=== PATIENT | male | born 1995 | race African-American/Black ===

== ENCOUNTER 2017-12-29 20:24 | Emergency (ER) | payer BC, OTHER ==
[2017-12-29 20:44] VITALS: BP 157/91
[2017-12-29] MEDS ORDERED: POLYMYXIN B SULFATE/TMP OPH SOLN (10 ML/ER DISP) OS ONE (23:33)
--- NOTE | 2017-12-29 23:34 | ER Document Report ---
ED Eye Complaint - General Chief Complaint: Eye Problem Stated Complaint: EYE PAIN Time Seen by Provider: 12/29/17 23:27 Mode of Arrival: Ambulatory Information source: Patient Notes: Patient is a 22-year-old male who presents to the ER today for left eye redness , drainage, itching. Patient states he woke up today with it matted shut, admits to yellow drainage today. He admits that it is itchy but denies any pain. He denies any blurred vision. Patient does not wear contacts. He admits to a slight runny nose as well. TRAVEL OUTSIDE OF THE [place] IN LAST 30 DAYS: No - Related Data Allergies/Adverse Reactions: No Known Allergies Allergy (Unverified 10/15/15 18:55) Past Medical History - General Information source: Patient - Social History Smoking Status: Current Some Day Smoker Frequency of alcohol use: Occasional Family History: Reviewed & Not Pertinent Patient has suicidal ideation: No Patient has homicidal ideation: No Renal/ Medical History: Denies: Hx Peritoneal Dialysis - Immunizations Hx Diphtheria, Pertussis, Tetanus Vaccination: Yes - not current of tdap Review of Systems - Review of Systems Constitutional: No symptoms reported EENT: See HPI Cardiovascular: No symptoms reported Respiratory: No symptoms reported Gastrointestinal: No symptoms reported Genitourinary: No symptoms reported Male Genitourinary: No symptoms reported Musculoskeletal: No symptoms reported Skin: No symptoms reported Hematologic/Lymphatic: No symptoms reported Neurological/Psychological: No symptoms reported Physical Exam - Vital signs Vitals: Temp Pulse Resp BP Pulse Ox 98.7 F 62 18 157/91 H 99 12/29/17 20:41 12/29/17 20:41 12/29/17 20:41 12/29/17 20:41 12/29/17 20:41 - Notes Notes: PHYSICAL EXAMINATION: GENERAL: Well-appearing and in no acute distress. HEAD: Atraumatic, normocephalic. EYES: Pupils equal round and reactive to light, extraocular movements intact, sclera anicteric, conjunctiva erythematous with yellow discharge and watering to the left eye ENT: ear canals without erythema or foreign body, TMs pearly evans with good bony landmarks, nares patent, oropharynx clear without exudates. Moist mucous membranes. NECK: Normal range of motion, supple without lymphadenopathy LUNGS: CTAB and equal. No wheezes rales or rhonchi. HEART: Regular rate and rhythm without murmurs EXTREMITIES: Normal range of motion, no pitting edema. No cyanosis. NEUROLOGICAL: Cranial nerves grossly intact. Normal sensory/motor exams. PSYCH: Normal mood, normal affect. SKIN: Warm, Dry, normal turgor, no rashes or lesions noted Course - Re-evaluation Re-evalutation: 12/29/17 23:33 Patient was sent home on Polytrim eyedrops from the emergency department. This is enough for the entire course of treatment. - Vital Signs Vital signs: Temp Pulse Resp BP Pulse Ox 98.7 F 62 18 157/91 H 99 12/29/17 20:41 12/29/17 20:41 12/29/17 20:41 12/29/17 20:41 12/29/17 20:41 Discharge - Discharge Clinical Impression: Conjunctivitis, left eye Qualifiers: Conjunctivitis type: blepharoconjunctivitis Blepharoconjunctivitis type: unspecified Qualified Code(s): H10.502 - Unspecified blepharoconjunctivitis, left eye Condition: Stable Disposition: HOME, SELF-CARE Additional Instructions: Please apply the eyedrops every 3 hours while awake for 7 days. Return immediately for any new or worsening symptoms. Follow up with primary care provider, call tomorrow to make followup appointment. Forms: Return to Work
== END 2017-12-29 23:55 | disposition home or self-care (01) ==
LOC: ER 20:24
DX: H10.502 Unspecified blepharoconjunctivitis, left eye (principal); F17.200 Nicotine dependence, unspecified, uncomplicated
CPT/HCPCS: 99283; J3490

== ENCOUNTER 2019-11-11 22:15 | Emergency (ER) | payer BC, OTHER ==
--- NOTE | 2019-11-11 22:53 | ER Document Report ---
ED General - General Chief Complaint: Other Stated Complaint: NAUSEA,CONGESTION Time Seen by Provider: 11/11/19 22:40 TRAVEL OUTSIDE OF THE [place] IN LAST 30 DAYS: No - HPI Notes: Patient is a 24-year-old male who presents to the emergency department for evaluation. He has had the hiccups for the last 3 days. He states his hiccups stopped at 11 AM, but he has chest wall pain from them. He states it hurts to move, touch the area. He has not had any hiccups in the last 12 hours. He describes a sore and pinching pain in his chest. He denies any fevers or chills. No nausea or vomiting. He is eating and drinking normally. - Related Data Allergies/Adverse Reactions: No Known Allergies Allergy (Unverified 10/15/15 18:55) Home Medications: None Past Medical History - General Information source: Patient - Is here we will see her we gave her a dose here there is - Social History Smoking Status: Current Some Day Smoker Frequency of alcohol use: Social Family History: Reviewed & Not Pertinent Patient has homicidal ideation: No - Medical History Medical History: Negative Renal/ Medical History: Denies: Hx Peritoneal Dialysis Surgical Hx: Negative - Immunizations Hx Diphtheria, Pertussis, Tetanus Vaccination: Yes - not current of tdap Review of Systems - Review of Systems Cardiovascular: See HPI Musculoskeletal: See HPI -: Yes All other systems reviewed and negative Physical Exam - Vital signs Vitals: Temp Pulse Resp BP Pulse Ox 98.0 F 84 18 158/85 H 97 11/11/19 22:19 11/11/19 22:19 11/11/19 22:19 11/11/19 22:19 11/11/19 22:19 - Notes Notes: Vital signs reviewed, please refer to chart. Head is normocephalic, atraumatic. Pupils equal round, reactive to light. Neck is supple without meningismus. Heart is regular rate and rhythm. Lungs are clear to auscultation bilaterally. Chest wall excursion is equal, chest wall is mildly tender. Abdomen is soft, nontender, normoactive bowel sounds throughout. Extremities without cyanosis, clubbing. Posterior calves are nontender. Peripheral pulses are equal. Skin is warm and dry. Patient is awake, alert, neurological exam is nonfocal. Course - Re-evaluation Re-evalutation: 11/11/19 23:08 Patient presents to the emergency department for evaluation of chest pain after intractable hiccups. His hiccups have resolved, he has not had a hiccup in over 12 hours. His chest wall is tender to palpation. I suspect this is musculoskeletal. He had EKG and chest x-ray ordered. EKG fails to show any signs of ischemia or infarction. Chest x-ray interpreted by myself as being negative. We will send patient home with anti-inflammatories and muscle relaxers, close follow-up. He is to return to the ED with worsening. - Vital Signs Vital signs: Temp Pulse Resp BP Pulse Ox 98 F 84 18 158/85 H 97 11/11/19 22:24 11/11/19 22:19 11/11/19 22:19 11/11/19 22:19 11/11/19 22:19 - Diagnostic Test Radiology reviewed: Image reviewed, Reports reviewed - EKG Interpretation by Me Additional EKG results interpreted by me: 11/11/19 23:09 Sinus mechanism with rate of 79 bpm. Normal axis and intervals. Nonspecific ST changes. No acute ST changes concerning for infarction. No old studies available for comparison. Discharge - Discharge Clinical Impression: Chest wall pain Condition: Stable Disposition: HOME, SELF-CARE Instructions: Anti-Inflammatory Medication ([facility]), Chest Wall Pain ([facility]), Muscle Relaxers ([facility]) Additional Instructions: Moist heat to the painful area. Take medications as prescribed. Follow-up with your primary care provider at the beginning of next week. If you develop worsening or new concerning symptoms of any sort, please return immediately to the emergency department for evaluation. Prescriptions: Cyclobenzaprine HCl 5 mg PO BIDP PRN #6 tablet PRN Reason: Naproxen 500 mg PO BID #14 tablet.
[2019-11-11] MEDS ORDERED: KETOROLAC TROMETHAMINE 60 MG/2 ML SDV IM ONE (22:56)
--- NOTE | 2019-11-11 23:15 | RADIOLOGY REPORT (SQ) ---
CLINICAL INDICATION: hiccups, chest wall pain. TECHNIQUE: PA and lateral views were obtained of the chest COMPARISON: None. FINDINGS: The cardiomediastinal silhouette is normal. The lungs are grossly clear. No evidence of effusion or pneumothorax. Visualized bones are unremarkable. . IMPRESSION: No evidence of active intrathoracic disease .
[2019-11-12 00:09] VITALS: BP 143/82
--- NOTE | 2019-11-12 12:39 | EKG REPORT ---
SEVERITY:- NORMAL ECG - SINUS RHYTHM : Confirmed by: Edward Owen 12-Nov-2019 12:39:04
== END 2019-11-12 00:17 | disposition home or self-care (01) ==
LOC: ER 22:15
DX: R07.89 Other chest pain (principal); F17.200 Nicotine dependence, unspecified, uncomplicated
CPT/HCPCS: 93005; 99283; 96372; 71046; 93010; J1885